=== PATIENT | male | born 1995 | race Caucasian/White ===

== ENCOUNTER 2016-07-23 11:22 | Emergency (ER) | payer OTHER ==
[~2016-07-23] VITALS: Wt 70.0 kg
[2016-07-23] MEDS ORDERED: SOD CHLORIDE 0.9% 1,000 ML IV STA (13:42)
[2016-07-23] MEDS ORDERED: KETOROLAC 30 MG INJ IV STA (13:42)
[2016-07-23 14:46] LABS: ADD SCAN DIFF NO
[2016-07-23 14:52] LABS: BASOPHILS % 0.3 % (0.0-2.0); EOSINOPHILS # 0.1 10^3/ul (0.0-0.5); EOSINOPHILS % 0.6 % (0.0-7.0); HEMATOCRIT 43.5 % (42.0-52.0); LYMPHOCYTES # 2.3 10^3/ul (0.8-2.9); LYMPHOCYTES % 22.5 % (18.0-55.0); MEAN CORPUSCULAR HEMOGLOBIN 29.1 pg (29.0-33.0); MEAN CORPUSCULAR HGB CONC 32.2 g/dl (32.0-37.0); MEAN CORPUSCULAR VOLUME 90.4 fl (72.0-104.0); MONOCYTE # 0.9 10^3/ul (0.3-0.9); MONOCYTES % 9.2 % (0.0-13.0); NEUTROPHIL # 6.7 10^3/ul (1.6-7.5); NEUTROPHILS % 66.7 % (30.0-74.0); PLATELET COUNT 244 10^3/UL (140-415); RED BLOOD COUNT 4.81 10^6/ul (4.70-6.10); RED CELL DISTRIBUTION WIDTH 12.2 % (11.5-14.5); WHITE BLOOD COUNT 10.1 10^3/ul (4.8-10.8)
[2016-07-23 14:59] LABS: ALBUMIN 4.4 g/dl (3.3-4.9)
[2016-07-23 15:00] LABS: POTASSIUM 4.2 mmol/L (3.5-5.1)
[2016-07-23 15:02] LABS: ALBUMIN/GLOBULIN RATIO 1.25; BILIRUBIN,INDIRECT 0.2 mg/dl (0-1.1); BILIRUBIN,TOTAL 0.2 mg/dl (0.2-1.3); CREATININE 0.83 mg/dl (0.61-1.24); TOTAL PROTEIN 7.9 g/dl (6.1-8.1)
[2016-07-23] MEDS ORDERED: ACET1TAB40 PO (16:03)
[2016-07-23] MEDS ORDERED: IBUP-1542 PO (16:03)
--- NOTE | 2016-07-23 16:05 | ERD ---
ER Documentation Chief Complaint Date/Time DATE: 07/23/16 TIME: 16:04 Chief Complaint FEVER AND COUGH AND HEADAHE FOR THE PAST WEEK. HPI This 1-year-old male presents with a intermittent fever for last week, coughing headache which is been intermittent feels like the whole head and worse with movement. Denies any neck stiffness, visual changes, vomiting, rashes, neurologic deficits. ROS All systems reviewed and are negative except as per history of present illness. Medications Home Meds Active Scripts Acetaminophen with Codeine (Acetaminophen-Cod #3 Tablet) 1 Each Tablet, 1 TAB PO Q6H Y for PAIN, #10 TAB Prov:CASS SANTORO MD 07/23/16 Ibuprofen* (Motrin*) 600 Mg Tab, 600 MG PO Q6, #30 TAB Prov:CASS SANTORO MD 07/23/16 Reported Medications [None] No Conflict Check 11/16/11 Allergies Allergies: Coded Allergies: No Known Allergies (Verified Allergy, Unknown, 07/23/16) PMhx/Soc Medical and Surgical Hx: pt denies Medical Hx, pt denies Surgical Hx History of Surgery: No Anesthesia Reaction: No Hx Neurological Disorder: No Hx Respiratory Disorders: No Hx Cardiac Disorders: No Hx Psychiatric Problems: No Hx Miscellaneous Medical Probl: No Hx Alcohol Use: No Hx Substance Use: No Hx Tobacco Use: No Smoking Status: Never smoker Physical Exam Vitals Vital Signs Date Time Temp Pulse Resp B/P Pulse Ox O2 Delivery O2 Flow Rate FiO2 07/23/16 11:23 98.7 71 20 129/59 99 Physical Exam const: [] Alert, [id number]. Head: Atraumatic Eyes: Normal Conjunctiva. Eyes are PERRLA and extraocular movements intact ENT: Normal External Ears, Nose and Mouth. Neck: Full range of motion..~ No meningismus. Resp: Clear to auscultation bilaterally Cardio: Regular rate and rhythm, no murmurs Abd: Soft, non tender, non distended. Normal bowel sounds Skin: No petechiae or rashes Back: No midline or flank tenderness Ext: No cyanosis, or edema Neur: Awake and alert Psych: Normal Mood and Affect Result Diagram: 07/23/16 1350 07/23/16 1350 Results 24 hrs Laboratory Tests Test 07/23/16 13:50 Alanine Aminotransferase (ALT/SGPT) 29IU/L Albumin 4.4g/dl Albumin/Globulin Ratio 1.25 Alkaline Phosphatase 78IU/L Anion Gap 17 Aspartate Amino Transf (AST/SGOT) 17IU/L Basophils # 0.010^3/ul Basophils % 0.3% Blood Urea Nitrogen 17mg/dl Calcium Level 9.0mg/dl Carbon Dioxide Level 29mmol/L Chloride Level 102mmol/L Creatinine 0.83mg/dl Direct Bilirubin 0.00mg/dl Eosinophils # 0.110^3/ul Eosinophils % 0.6% Globulin 3.50g/dl Glucose Level 84mg/dl Hematocrit 43.5% Hemoglobin 14.0g/dl Indirect Bilirubin 0.2mg/dl Lymphocytes # 2.310^3/ul Lymphocytes % 22.5% Mean Corpuscular Hemoglobin 29.1pg Mean Corpuscular Hemoglobin Concent 32.2g/dl Mean Corpuscular Volume 90.4fl Mean Platelet Volume 10.0fl Monocytes # 0.910^3/ul Monocytes % 9.2% Neutrophils # 6.710^3/ul Neutrophils % 66.7% Nucleated Red Blood Cells # 0.010^3/ul Nucleated Red Blood Cells % 0.0/100WBC Platelet Count 54355^3/UL Potassium Level 4.2mmol/L Red Blood Count 4.8110^6/ul Red Cell Distribution Width 12.2% Sodium Level 144mmol/L Total Bilirubin 0.2mg/dl Total Protein 7.9g/dl White Blood Count 10.110^3/ul Current Medications Medications (Trade) Dose Ordered Sig/Aftab Route PRN Reason Start Time Stop Time Status Last Admin Dose Admin Sodium Chloride (NS) 1,000 ml @ 1,000 mls/hr Q1H STAT IV 07/23/16 13:42 07/23/16 14:41 DC 07/23/16 14:06 Ketorolac Tromethamine (Toradol) 30 mg ONCE STAT IV 07/23/16 13:42 07/23/16 13:44 DC 07/23/16 14:06 Procedures/MDM Given the uncertain cause of symptoms and duration and IV was obtained. Patient was given 1 L normal saline IV, Toradol 30 mg IV, CBC and CMP are normal. Influenza swab was negative. Patient has signs and symptoms of febrile illness and nonspecific headache without signs of meningitis, signs or symptoms to suggest mass-effect or neurologic deficit. Suspect he has a resolving viral illness. Will treat with ibuprofen, 3 and further observation closely at home. Patient should return for vomiting, worsening headache, recurrent fever, new or worsening symptoms otherwise 1-2 days for viral illness to resolve. The patient was stable with no new complaints during the ER course. Clinically, there is no current evidence to suggest meningitis, sepsis, acute abdomen, pneumonia, acute coronary syndrome, pulmonary embolism, or any other emergent condition appearing to require further evaluation or hospitalization. The patient should certainly return for any new or worsening symptoms per the aftercare instructions. They should otherwise follow-up with her primary care doctor for reevaluation this week. Departure Diagnosis: Primary Impression: Headache Headache type: unspecified Headache chronicity pattern: unspecified pattern Intractability: not intractable Qualified Code: R51 - Nonintractable headache, unspecified chronicity pattern, unspecified headache type Condition: Stable Patient Instructions: Febrile Illness, Uncertain Cause (Adult), Headache, Unspecified Additional Instructions: Labs normal. Suspect viral illness which should resolve the next 1-3 days. Recheck for new or worsening symptoms with primary care doctor. Drink plenty of fluids at home. CASS SANTORO MD Jul 23, 2016 16:05
[2016-07-23 16:27] VITALS: BP 119/65; PULSE 72; RESP 19; TEMP 98.4
== END 2016-07-23 16:28 | disposition home or self-care (01) ==
LOC: FTE 11:22
DX: R51 Headache (principal)
CPT/HCPCS: 36415; 80053; 85025; 87400; 96361; 96374; J1885; J7030; Z7502